=== PATIENT | male | born 1960 | race African-American/Black ===

== ENCOUNTER 2016-07-09 15:49 | Emergency (ER) | payer SELFPAY ==
--- NOTE | 2016-07-09 15:59 | ER Document Report ---
ED Medical Screen (RME) - General Chief Complaint: Flank Pain Stated Complaint: RIB PAIN Mode of Arrival: Ambulatory Information source: Patient Notes: Patient presents to the emergency department with left-sided rib pain. Patient reports a started last week and has changes with position. Patient also reports vomiting with abdominal pain yesterday. Denies injury. Denies fever. Reports last bowel movement yesterday after taking a laxative. Denies past medical history I have greeted and performed a rapid initial assessment of this patient. A comprehensive ED assessment and evaluation of the patient, analysis of test results and completion of the medical decision making process will be conducted by additional ED providers. TRAVEL OUTSIDE OF THE [place] IN LAST 30 DAYS: No - Related Data Allergies/Adverse Reactions: No Known Allergies Allergy (Verified 07/09/16 15:57) Past Medical History - Social History Chew tobacco use (# tins/day): No - cigars Frequency of alcohol use: None Drug Abuse: None Renal/ Medical History: Denies: Hx Peritoneal Dialysis Physical Exam - Vital signs Vitals: Temp Pulse Resp BP Pulse Ox 98.8 F 86 18 159/101 H 99 07/09/16 15:54 07/09/16 15:54 07/09/16 15:54 07/09/16 15:54 07/09/16 15:54 Course - Vital Signs Vital signs: Temp Pulse Resp BP Pulse Ox 98.8 F 86 18 159/101 H 99 07/09/16 15:54 07/09/16 15:54 07/09/16 15:54 07/09/16 15:54 07/09/16 15:54
[2016-07-09 16:32] LABS: ABSOLUTE EOSINOPHILS # (AUTO) 0.1 10^3/uL (0.0-0.6); ABSOLUTE LYMPHOCYTES (AUTO) 3.2 10^3/uL (0.5-4.7); ABSOLUTE MONOCYTES (AUTO) 0.7 10^3/uL (0.1-1.4); ABSOLUTE NEUT (AUTO) 2.7 10^3/uL (1.7-8.2); BASOPHILS % (AUTO) 0.4 % (0-2); EOSINOPHILS % (AUTO) 0.8 % (0-6); HEMATOCRIT 49.2 % (37.9-51.0); HEMOGLOBIN 16.6 g/dL (13.5-17.0); HGB HCT DIFFERENCE 0.6; LYMPHOCYTES % (AUTO) 48.6 % (13-45); MEAN CORPUSCULAR HEMOGLOBIN 30.9 pg (27.0-33.4); MEAN CORPUSCULAR HGB CONC 33.8 g/dL (32.0-36.0); MEAN CORPUSCULAR VOLUME 91 fl (80-97); MONOCYTES % (AUTO) 10.5 % (3-13); RED BLOOD COUNT 5.39 10^6/uL (4.35-5.55); RED CELL DISTRIBUTION WIDTH 13.5 % (11.5-14.0); SEGMENTED NEUTROPHILS % (AUTO) 39.7 % (42-78); WHITE BLOOD COUNT 6.7 10^3/uL (4.0-10.5)
[2016-07-09 16:54] LABS: ALANINE AMINOTRANSFERASE 24 U/L (21-72); ALBUMIN 4.8 g/dL (3.5-5.0); ALKALINE PHOSPHATASE 82 U/L (38-126); ANION GAP 12 (5-19); ASPARTATE AMINO TRANSFERASE 23 U/L (17-59); BILIRUBIN,TOTAL 0.9 mg/dL (0.2-1.3); BLOOD UREA NITROGEN 11 mg/dL (7-20); CALCIUM 10.3 mg/dL (8.4-10.2); CARBON DIOXIDE 29 mmol/L (22-30); CHLORIDE 94 mmol/L (98-107); CREATININE RESULT 0.83 mg/dL (0.52-1.25); GLUCOSE 100 mg/dL (75-110); POTASSIUM 4.4 mmol/L (3.6-5.0); SODIUM 135.3 mmol/L (137-145); TOTAL PROTEIN 8.2 g/dL (6.3-8.2)
--- NOTE | 2016-07-09 18:33 | ER Document Report ---
ED GI/ - General Chief Complaint: Flank Pain Stated Complaint: RIB PAIN Mode of Arrival: Ambulatory Notes: Patient is a 55-year-old male presents emergency Department complaining of side pain. Patient states that he's had this pain for about one week which is preventing him from remaining in one position or from getting comfortable. Patient states this pain is in his left flank area and occasionally radiates into his abdomen. Described the pain as constant dull ache with occasional pulsating and occasional sharp tearing pain along his back. He states that he has also had one episode of emesis associated with this yesterday. Last bowel movement was yesterday and has been regular. Denies any urinary symptoms. Denies any urinary frequency, pyuria, urgency, hematuria Denies any personal or family history of kidney stones Has undiagnosed elevated blood pressure is not have a primary care doctor no past medical history, past surgical history Social history admits to 3 cigars a day, every other alcohol use denies any drugs. TRAVEL OUTSIDE OF THE [place] IN LAST 30 DAYS: No - Related Data Allergies/Adverse Reactions: No Known Allergies Allergy (Verified 07/09/16 15:57) Past Medical History - General Information source: Patient - Social History Smoking Status: Current Every Day Smoker Chew tobacco use (# tins/day): No - cigars Frequency of alcohol use: None Drug Abuse: None Family History: Reviewed & Not Pertinent Patient has suicidal ideation: No Patient has homicidal ideation: No Renal/ Medical History: Denies: Hx Peritoneal Dialysis Review of Systems - Review of Systems Constitutional: No symptoms reported EENT: No symptoms reported Cardiovascular: No symptoms reported Respiratory: No symptoms reported Gastrointestinal: See HPI Genitourinary: See HPI Male Genitourinary: No symptoms reported Musculoskeletal: See HPI Skin: No symptoms reported Hematologic/Lymphatic: No symptoms reported Neurological/Psychological: No symptoms reported Physical Exam - Vital signs Vitals: Temp Pulse Resp BP Pulse Ox 98.8 F 86 18 159/101 H 99 07/09/16 15:54 07/09/16 15:54 07/09/16 15:54 07/09/16 15:54 07/09/16 15:54 - Notes Notes: PHYSICAL EXAM GENERAL: Alert, interacts well. HEAD: Normocephalic, atraumatic. EYES: Pupils equal, round, and reactive to light. Extraocular movements intact. ENT: Oral mucosa moist, tongue midline. NECK: Full range of motion. Supple. Trachea midline. LUNGS: Clear to auscultation bilaterally, no wheezes, rales, or rhonchi. No respiratory distress. HEART: Regular rate and rhythm. No murmurs, gallops, or rubs. ABDOMEN: Soft, nondistended, nontender throughout but states he has pain with deep palpation of the left upper quadrant below the spleen. No palpable mass or bruit noted. no guarding, rebound, or rigidity.. Bowel sounds present in all 4 quadrants. BACK: no spinous process tenderness or paraspinous muscle tenderness. No CVA tenderness b/l. EXTREMITIES: Moves all 4 extremities spontaneously. No edema, radial and dorsalis pedis pulses 2/4 bilaterally. No cyanosis. NEUROLOGICAL: Alert and oriented x4. Normal speech. PSYCH: Normal affect, normal mood. SKIN: Warm, dry, normal turgor. No rashes or lesions noted. Course - Re-evaluation Re-evalutation: 07/09/16 18:44 Patient is a 55 male presents emergency Department complaining of left upper abdominal pain. Patient states she's had this pain for about a week. Consult to Dr. Lorne Rocha who recommended CT ltd renal protocol to evaluate for any kidney stone but we'll also evaluate his aorta for concern for dissection or aneurysm. CT the abdomen and pelvis came back negative. CBC and CMP are within normal limits. Urinalysis shows some hematuria but no evidence of leukocytosis. At this time with concern for any pyelonephritis. It is likely based on FINDINGS and presentation the patient passed a kidney stone. We'll discharge home and can follow-up with [facility] or [facility] - Vital Signs Vital signs: Temp Pulse Resp BP Pulse Ox 98.0 F 81 16 140/72 H 98 07/09/16 19:23 07/09/16 19:23 07/09/16 19:23 07/09/16 19:23 07/09/16 19:23 - Laboratory Result Diagrams: 07/09/16 16:00 07/09/16 16:00 Laboratory results interpreted by me: 07/09/16 07/09/16 07/09/16 16:00 16:00 16:00 Seg Neutrophils % 39.7 L Lymphocytes % 48.6 H Sodium 135.3 L Chloride 94 L Calcium 10.3 H Urine Ketones TRACE H Urine Blood MODERATE H - Diagnostic Test Radiology reviewed: Image reviewed, Reports reviewed Discharge - Discharge Clinical Impression: Flank pain Condition: Good Disposition: HOME, SELF-CARE Additional Instructions: Based on your presentation today and evaluation it is likely that you passed a kidney stone Is important to drink plenty of fluids Take Tylenol and Motrin as needed for pain Please follow-up with a primary care provider for elevated blood pressure today. Forms: Elevated Blood Pressure, Smoking Cessation Education, Return to Work Referrals: [facility] [NO LOCAL MD] - Follow up as needed HÉCTOR SUMNER MD [NO LOCAL MD] - Follow up as needed
[2016-07-09 18:47] LABS: APPEARANCE,URINE CLEAR; BILIRUBIN,URINE NEGATIVE (NEGATIVE); GLUCOSE, URINE NEGATIVE (NEGATIVE); KETONES,URINE TRACE mg/dL (NEGATIVE); LEUKOCYTE ESTERASE,URINE NEGATIVE (NEGATIVE); NITRITE,URINE NEGATIVE (NEGATIVE); PROTEIN,URINE NEGATIVE (NEGATIVE); URINE SPECIFIC GRAVITY 1.016; UROBILINOGEN,URINE NEGATIVE mg/dL (<2.0)
[2016-07-09 19:25] VITALS: BP 140/72
== END 2016-07-09 19:23 | disposition home or self-care (01) ==
LOC: ER 15:49
DX: R10.9 Unspecified abdominal pain (principal); F17.200 Nicotine dependence, unspecified, uncomplicated
CPT/HCPCS: 36415; 76380; 80053; 81001; 85025; 99284

== ENCOUNTER 2018-05-22 11:39 | Emergency (ER) | payer BC ==
[2018-05-22 11:44] VITALS: BP 140/83
--- NOTE | 2018-05-22 12:23 | ER Document Report ---
HPI - HPI Time Seen by Provider: 05/22/18 11:54 Pain Level: 1 Notes: Patient is a 57-year-old male with a history of sinus issues and sinusitis that presents with 4 weeks of sinus pain, drainage headaches and pressure behind his eyes. Patient reports that he is tried taking TheraFlu with no relief. He reports the last time he got this bad he had to be put on antibiotics and prednisone. Patient denies fevers but reports chills. - CONSTITUTIONAL Constitutional: REPORTS: Chills. DENIES: Fever - EENT EENT: DENIES: Sore Throat - NEURO Neurology: REPORTS: Headache - RESPIRATORY Respiratory: DENIES: Coughing Past Medical History - Social History Smoking Status: Current Some Day Smoker Chew tobacco use (# tins/day): No Frequency of alcohol use: Occasional Drug Abuse: None Family History: Reviewed & Not Pertinent Patient has suicidal ideation: No Patient has homicidal ideation: No Renal/ Medical History: Denies: Hx Peritoneal Dialysis Vertical Provider Document - CONSTITUTIONAL Notes: PHYSICAL EXAMINATION: GENERAL: Well-appearing, well-nourished and in no acute distress. HEAD: Atraumatic, normocephalic. Significant tenderness to palpation over maxillary and frontal sinuses. EYES: Pupils equal round extraocular movements intact, conjunctiva are normal. ENT: Nares with white rhinorrhea NECK: Normal range of motion, no cervical lymphadenopathy. LUNGS: No respiratory distress, lung sounds clear to auscultation. Musculoskeletal: Normal range of motion NEUROLOGICAL: Normal speech, normal gait. PSYCH: Normal mood, normal affect. SKIN: Warm, Dry, normal turgor, no rashes or lesions noted. - INFECTION CONTROL TRAVEL OUTSIDE OF THE [place] IN LAST 30 DAYS: No Course - Re-evaluation Re-evalutation: Patient's examination consistent with sinusitis. Patient has been sick for greater than 4 weeks and has significant tenderness over the maxillary and frontal sinuses. Will start patient on antibiotics at this time. - Vital Signs Vital signs: Temp Pulse Resp BP Pulse Ox 98.3 F 68 16 140/83 H 100 05/22/18 11:43 05/22/18 11:43 05/22/18 11:43 05/22/18 11:43 05/22/18 11:43 Discharge - Discharge Clinical Impression: Sinus pain Sinusitis Qualifiers: Sinusitis location: unspecified location Chronicity: acute Recurrence: recurrent Qualified Code(s): J01.91 - Acute recurrent sinusitis, unspecified Condition: Stable Disposition: HOME, SELF-CARE Additional Instructions: Sinusitis You have sinusitis, an infection of the sinus cavities of the face. The sinuses are air-filled chambers which open into the inside of the nose. Ba cteria and pus fill a sinus, causing pain, drainage, and fever. Sinusitis is treated with antibiotics. Often, expectorants (to thin the sinus mucous) or decongestants (to reduce swelling) are prescribed as well. Healing requires seven to 10 days. Avoid chemical fumes, pollens, dusts, and smoke (especially cigarette smoke). Keep the air humidified in your bedroom and work area and take plenty of liquids by mouth. This condition can be serious if the infection spreads. If your symptoms worsen, or if you develop severe headache, high fever, stiff neck, or a rash, you must call the doctor or return for re-evaluation. Please take medications as prescribed. You may also take ibuprofen for pain. Please follow-up with primary care, I have given you a list of primary care prov iders in the area. Prescriptions: Amox Tr/Potassium Clavulanate [Augmentin 875-125 mg Tablet] 1 tab PO BID #20 tablet Fluticasone Propionate [Flonase Nasal [place] 50 Mcg/[place] 16 gm] 2 sprays NASL Q12 #1 inhaler Prednisone [Deltasone 20 mg Tablet] 3 tab PO DAILY 5 Days #15 tablet Forms: Return to Work Referrals: LIANG CAPUTO MD [NO LOCAL MD] - Follow up as needed MICHAEL PEREZ MD [ACTIVE STAFF] - Follow up as needed
== END 2018-05-22 12:27 | disposition home or self-care (01) ==
LOC: ER 11:39
DX: J01.91 Acute recurrent sinusitis, unspecified (principal); R51 Headache; F17.200 Nicotine dependence, unspecified, uncomplicated
CPT/HCPCS: 99283